=== PATIENT | female | born 1950 | race Caucasian/White ===

== ENCOUNTER 2017-04-03 12:30 | Emergency (ER) | payer OTHER ==
--- NOTE | 2017-04-03 16:43 | ED CLINICAL REPORT ---
Clinical Report - Physicians/Mid Levels [facility] [address] [place] [address] 04/03/2017 12:33 Patient: GIDEON MALLOY Time Seen: 12:42; initial patient contact. Arrived- By private vehicle. Historian- patient. HISTORY OF PRESENT ILLNESS Chief Complaint: Injury to the left thumb. The injury happened about 3 days ago. Occurred at home. The patient sustained a puncture wound from a splinter. Patient is experiencing moderate pain. Patient denies injury to the head or neck. REVIEW OF SYSTEMS The patient has had swelling. No tingling, numbness, foreign body, chills or fever. No nausea or vomiting. She sustained skin laceration. All systems otherwise negative, except as recorded above. PAST HISTORY The patient's dominant hand is the right. Last tetanus immunization was more than 5 years ago. Medications: CloNIDine HCl Oral. Levothyroxine Sodium Oral. Lisinopril Oral. Omeprazole Oral. PARoxetine HCl ER Oral. Zolpidem Tartrate Oral. Allergies: Flexeril. ("tongue, mouth and throat turn black"). SOCIAL HISTORY Current every day smoker. History of drug use: marijuana. ADDITIONAL NOTES The nursing notes have been reviewed. PHYSICAL EXAM Vital Signs: 04/03/2017 12:44 BP: 190/90. HR: 107. RR: 16. O2 saturation: 97%. Temp: 97.3 F. Have been reviewed. Hypertensive. Tachycardic. Respiratory rate normal. Temperature normal. Oxygen saturation normal. Appearance: Alert. Oriented X3. No acute distress. Head: Head atraumatic. Eyes: Eyes normal inspection. ENT: Pharynx normal. CVS: Normal heart rate and rhythm. Heart sounds normal. Respiratory: No respiratory distress. Breath sounds normal. Skin: Skin warm and dry. Skin intact. Extremities: Thenar eminence, left hand: moderate erythema, tenderness and swelling and single puncture wound. Limited movement of the thumb (diminished flexion, extension, abduction, adduction and opposition). Neurovascular intact distally. No foreign body or deformity. Hand and wrist exam otherwise negative. Extremities otherwise negative. Neuro, Vascular and Tendons: Vascular status intact. Sensation intact. Motor intact. Tendon function intact. Neuro: Oriented X 3. No motor deficit. LABS, X-RAYS, AND EKG Laboratory Tests: CBC w Diff: (DUGLAS: 04/03/2017 00:01) ( [facility] 04/03/2017 13:30) Final results Test Result Flag Units (Reference) WHITE BLOOD COUNT 16.4 H K/uL (4.5-11.5) RED BLOOD COUNT 4.64 M/uL (4.00-5.20) HEMOGLOBIN 12.8 gm/dL (12.0-16.0) HEMATOCRIT 38.7 % (36.0-46.0) MEAN CELL VOLUME 83 fL (80-100) MEAN CORPUSCULAR HGB 28 pg (26-34) MEAN CORPUSCULAR HGB CONC 33 g/dL (31-37) RED CELL DISTRIBUTION WIDTH 17.5 H % (11.6-14.8) PLATELET COUNT 429 H K/uL (150-400) NEUTROPHIL % 72.6 % (50-75) LYMPH % 18.8 L % (25-40) MONO % 7.6 % (3-14) EOSINOPHIL % 0.6 % (0-4) BASOPHIL % 0.4 % (0-2) SED RATE WESTERGREN 44 H mm/hr (0-30) CMP: (DUGLAS: 04/03/2017 00:01) ( [facility] 04/03/2017 14:07) Final results Test Result Flag Units (Reference) GLUCOSE 114 H mg/dL (70-110) BUN 9 mg/dL (7-18) CREATININE 0.7 mg/dL (0.6-1.3) Estimated GFR >60 mL/min Estimated GFR- >60 mL/min Note: Persistent reduction over 3 months in eGFR<60 mL/min/1.73 m2 defines CKD. Patients with eGFR values>=60 mL/min/1.73 m2 may also have CKD if evidence ofpersistent proteinuria. Additional information may be foundat www.kidney.org. SODIUM 138 mmol/L (136-145) POTASSIUM 3.3 L mmol/L (3.5-5.1) CHLORIDE 102 mmol/L (98-107) CARBON DIOXIDE 26 mmol/L (21-32) CALCIUM 8.9 mg/dL (8.5-10.1) TOTAL PROTEIN 8.1 g/dL (6.4-8.2) ALBUMIN 3.7 g/dL (3.3-5.0) BILIRUBIN, TOTAL 0.4 mg/dL (0.0-1.0) ALKALINE PHOSPHATASE 101 U/L (46-116) AST (SGOT) 14 L U/L (15-37) ALT (SGPT) 13 U/L (12-78) C-REACTIVE PROTEIN 3.7 H mg/dL (0.0-0.9) . PROGRESS AND PROCEDURES Course of Care: 13:58 04/03/17. Pt developed N/V ~ 1 minute after Ceftriaxone was started. Will switch to Vanc and Cipro. Discussed case with hospitalist, (call returned [phone] Dr. Hays Hospitalist at [facility] accepts the pt.). Consult obtained from orthopedics. Dr. Maggie wright at [facility], will consult on pt, asked to admit to the hospitalist. CLINICAL IMPRESSION Infectious tenosynovitis left hand (Thumb). Moderate leukocytosis. INSTRUCTIONS Your Current Medications: CONTINUE TAKING THE FOLLOWING MEDICATIONS: CloNIDine HCl Oral. Levothyroxine Sodium Oral. Lisinopril Oral. Omeprazole Oral. PARoxetine HCl ER Oral. Zolpidem Tartrate Oral. Follow-up: Blood pressure screening was not performed during this visit because the patient has an active diagnosis of hypertension. (Electronically signed by Davsi Fajardo Dr. 04/03/2017 22:26)
--- NOTE | 2017-04-03 16:43 | ED ORDER SUMMARY ---
..... Patient: GIDEON MALLOY OrderSheet [facility] VisitID: [id number] [place] [address] 67y, F Registration Date/Time: 04/03/2017 ORDER SHEET Weight: 49.8 kg (stated) Allergies: Flexeril GENERAL ORDERS: CBC w Diff Urgent (12:51 04/03/2017 Kaylin Franklin) (Ack 12:56 OSnell) (13:07 KWilliams R.N.) CMP Urgent (12:51 04/03/2017 Kaylin Franklin) (Ack 12:56 OSnell) (13:07 KWilliams R.N.) CRP Urgent (12:51 04/03/2017 Kaylin Franklin) (Ack 12:56 OSnell) (13:07 KWilliams R.N.) Sed Rate Urgent (12:51 04/03/2017 Kaylin Franklin) (Ack 12:56 OSnell) (13:07 KWilliams R.N.) NPO (12:51 04/03/2017 Kaylin Franklin) (Ack 12:56 OSsofia) (13:11 MWinterer R.N.) (Cancelled: Physician Order13:21 Kaylin Franklin) MEDICATION ORDERS: Tdap IM 0.5 mL (NOW, per protocol) (12:51 04/03/2017 Kaylin Franklin) (Ack 13:05 MWinterer R.N.) (13:11 MWinterer R.N.) Ciprofloxacin PO 500 mg (NOW) (13:59 04/03/2017 Kaylin Franklin) (Ack 14:03 MWinterer R.N.) (14:08 MWinterer R.N.) IV FLUIDS: IV Saline Lock (12:51 04/03/2017 Kaylin Franklin) (Ack 13:05 MWinterer R.N.) (13:07 KWilliams R.N.) Ceftriaxone IV 1 gm/50mL (NOW) (13:21 04/03/2017 Kaylin Franklin) (Ack 13:24 MWinterer R.N.) (13:34 MWinterer R.N.) Zofran IV 4 mg (NOW) (13:41 04/03/2017 MWinterer R.N. verbal order read back to Kaylin Franklin) (13:42 MWinterer R.N.) Morphine IV 4 mg (HIGH ALERT MEDICATION, NOW) (13:41 04/03/2017 MWinterer R.N. verbal order read back to Kaylin Franklin) (13:42 MWinterer R.N.) Vancomycin IV 1 gm/200mL (NOW) (13:59 04/03/2017 Kaylin Franklin) (Ack 14:03 MWinterer R.N.) (14:25 MWinterer R.N.) Morphine IV 4 mg (HIGH ALERT MEDICATION, NOW) (16:41 04/03/2017 Kaylin Franklin) (Ack 16:56 MWinterer R.N.) (17:00 MWinterer R.N.) ORDER SHEET NOTES: [Electronically signed by Alannah Oconnor R.N. (17:17 04/03/2017)] [Electronically signed by Davis Fajardo Dr. (22:26 04/03/2017)] [Electronically locked/signed by Alannah Oconnor R.N. (17:17 04/03/2017)]
--- NOTE | 2017-04-03 16:43 | ED NURSING NOTES ---
Clinical Report - Nurses [facility] [address] [place] [address] 04/03/2017 12:33 Patient: GIDEON MALLOY TRIAGE Triage time 12:42. Acuity: LEVEL 3. Chief Complaint: LEFT UPPER EXTREMITY PAIN and SWELLING. Location of symptoms- left hand. Alert. No acute distress. DAE COMA SCORE: [place] Coma Scale: 15- eyes open spontaneously (4); best verbal response- oriented x 4 (5); best motor response- obeys commands (6). --12:52 Igor Petit R.N. 12:44 04/03/17. BP: 190/90. HR: 107. RR: 16. O2 saturation: 97% on room air. Temp: 97.3 F (oral). Pain level now 06/28. --12:52 Igor Petit R.N. Weight: 49.8 kg stated. Height/Length: 57 inches Per Patient. BMI: 23.8. --12:45 Igor Petit R.N. Medications Zolpidem Tartrate Oral. --12:48 Igor Petit R.N. PARoxetine HCl ER Oral. --12:49 Igor Petit R.N. Omeprazole Oral. --12:49 Igor Petit R.N. Lisinopril Oral. --12:49 Igor Petit R.N. Levothyroxine Sodium Oral. --12:49 Igor Petit R.N. CloNIDine HCl Oral. --12:49 Igor Petit R.N. Allergies Flexeril. ("tongue, mouth and throat turn black") --12:49 Igor Petit R.N. History Arrived by private vehicle. Primary physician (urmila). ( left hand swelling and pain. States she was stuck by a sliver of wood and noted swelling beginnging tuesday). Injury occurred. Occurred at home. Treatment CONSTRUCTION ADMINISTRATIVE ASSISTANT: (hot water). SOCIAL HX: Heavy tobacco smoker (cigarette)- 1-2 packs per day. History of drug use: marijuana. No alcohol use. ABUSE ASSESSMENT: Abuse assessment: The patient was asked "Do you feel safe in your home?". No report of abuse. SELF HARM ASSESSMENT: A self harm assessment was performed. The patient answered "no" to the question "Do you have thoughts of harming or killing yourself?" and "Have you recently had thoughts about harming or killing others?". FALL RISK ASSESSMENT: Fall risk assessment completed. No fall risk identified. NUTRITIONAL RISK ASSESSMENT: The nutritional risk assessment revealed no deficiencies. FUNCTIONAL ASSESSMENT: Functional assessment: no impairments noted. LEARNING NEEDS ASSESSMENT: The learning needs assessment revealed no barriers. SKIN INTEGRITY ASSESSMENT: Skin integrity risk assessment completed. No skin integrity risk identified. --12:52 Igor Petit R.N. PROBLEMS: Gastroesophageal Reflux Disease. Insomnia. Hypothyroidism. Hypertension. --12:51 Igor Petit R.N. ADDITIONAL SURGERIES: Cholecystectomy. Hysterectomy. Right hand surgery. --12:51 Igor Petit R.N. Assessment GENERAL / NEURO / PSYCH: Alert. Oriented X 4. Dae Coma Scale: 15- eyes open spontaneously (4); best verbal response- oriented x 4 (5); best motor response- obeys commands (6). Patient appears calm and cooperative. RESPIRATORY: Respirations not labored. GI / : Abdomen soft. SKIN: Skin is warm and dry. ( tenderness and swelling to left hand, just proximal to thumb, states she is unable to move thumb). --12:52 Igor Petit R.N. Interventions ID band on patient. To treatment room. --12:52 Igor Petit R.N. PHYSICAL ASSESSMENT Ambulatory to room. GENERAL / NEURO / PSYCH: Oriented X 4. Alert. Appears in no acute distress. EXTREMITIES: Neuro-vascular status intact to the extremity. Left hand: tenderness and swelling. SKIN: Skin is warm and dry. --12:53 Igor Petit R.N. NURSING PROGRESS NOTES The plan of care for this patient has been created. Extremity elevated. Patient gowned. Call light placed in reach. Bed placed in lowest position. Brakes of bed on. Patient ready for evaluation- chart flagged. --12:53 Igor Petit R.N. 13:02 04/03/2017 Site #1 started via IV in the right antecubital space with an 20g angiocath, with aseptic technique and good blood return; one attempt. Blood drawn: rainbow set. Labeled in the presence of the patient and sent to the lab. Saline lock flushed with 10 mL saline. --13:07 Igor Petit R.N. 13:11 04/03/2017 TDAP IM 0.5 mL given. (Lot#: [id number], expiration date: 02/22/2019, Nursing Officer: sanofi pasteur). Given in the left deltoid. Allergies verified and confirmed 5 rights. Vaccine information statement provided to the patient. --13:11 Alannah Oconnor R.N. 13:34 04/03/2017 Started 1 gm of Ceftriaxone IVPB in bag #1 50 mL; at 150 mL/hr over 20 minute(s) via site #1 via IV pump. Allergies verified and confirmed 5 rights. IV patency established. IV site checked: no pain, redness, or swelling. IV flushed thoroughly pre- and post-medication administration. --13:34 Alannah Oconnor R.N. 13:35 04/03/2017 Ceftriaxone IVPB Discontinued: bag #1 STOPPED. Total amount infused: 4.8 mL. IV patency established. IV site checked: no pain, redness, or swelling. IV flushed thoroughly. (pt started vomiting upon start of ceftriaxone). --13:41 Alannah Oconnor R.N. 13:42 04/03/2017 Zofran (Ondansetron HCl) IVP 4 mg given over 1 minute(s) via site #1. Allergies verified and confirmed 5 rights. IV patency established. IV site checked: no pain, redness, or swelling. IV flushed thoroughly pre- and post-medication administration. IVP given by RN. --13:42 Alannah Oconnor R.N. 13:42 04/03/2017 Morphine IVP 4 mg given over 2 minute(s) via site #1. Allergies verified, confirmed 5 rights and sedative warning given to the patient. IV patency established. IV site checked: no pain, redness, or swelling. IV flushed thoroughly pre- and post-medication administration. IVP given by RN. --13:42 Alannah Oconnor R.N. 13:43 04/03/17. Pulse oximeter applied; monitor alarms on. --13:43 Alannah Oconnor R.N. 14:08 04/03/2017 Ciprofloxacin (Ciprofloxacin) PO 500 mg given. Allergies verified and confirmed 5 rights. --14:08 Alannah Oconnor R.N. 14:25 04/03/2017 Started 1 gm of Vancomycin IVPB in bag #1 200 mL; at 200 mL/hr over 1 hour(s) via site #1 via IV pump. Allergies verified and confirmed 5 rights. IV patency established. IV site checked: no pain, redness, or swelling. IV flushed thoroughly pre- and post-medication administration. --14:25 Alannah Oconnor R.N. 14:48 04/03/17. BP: 205/94. HR: 90. RR: 16. O2 saturation: 97% on room air. Pain level now 7/10. --14:49 Igor Petit R.N. The patient is calm and resting quietly. Overall patient status- she states feels better. --14:49 Igor Petit R.N. 16:02 04/03/17. BP: 186/78. HR: 89. RR: 18. O2 saturation: 95% on room air. --16:02 Alannah Oconnor R.N. 15:36 04/03/2017 Vancomycin IVPB Discontinued: bag #1 infused. Total amount infused: 200 mL. IV patency established. IV site checked: no pain, redness, or swelling. IV flushed thoroughly. --16:36 Alannah Oconnor R.N. 16:36 04/03/2017 Site #[address] upon transfer; patent, no pain and no signs of infection or infiltration. Flushed with 10 mL saline; flushes easily. --16:36 Alannah Oconnor R.N. 16:50 04/03/2017 Morphine IVP 4 mg given over 1 minute(s) via site #1. Allergies verified, confirmed 5 rights and sedative warning given to the patient. IV patency established. IV site checked: no pain, redness, or swelling. IV flushed thoroughly pre- and post-medication administration. IVP given by RN. --17:00 Alannah Oconnor R.N. DISPOSITION / DISCHARGE 16:38 04/03/17. BP: 195/73. HR: 87. RR: 16. O2 saturation: 98% on room air. Temp: 98.1 F (oral). --16:39 Alannah Oconnor R.N. Departure time: 17:00 Apr 03 2017. Condition at departure: improved and stable. Learning barriers present. Transferred to [facility]. Transported via ambulance by EMS and transport team. Report was given to a nurse in person. Report included patient's care, treatment, medications, reviewed medication reconcilliation, and condition (including any recent changes or anticipated changes). All questions were answered. Report was acknowledged and care was transferred. (MIKE Villeda). Patient's personal items include: purse; items were placed in belongings bag and given to the spouse. --17:16 Alannah Oconnor R.N. Locked/Released at 04/03/2017 17:17 by Alannah Oconnor R.N.
--- NOTE | 2017-04-03 16:43 | ED ORDER SUMMARY ---
..... Patient: GIDEON MALLOY OrderSheet [facility] VisitID: [id number] [place] [address] 67y, F Registration Date/Time: 04/03/2017 ORDER SHEET Weight: 49.8 kg (stated) Allergies: Flexeril GENERAL ORDERS: CBC w Diff Urgent (12:51 04/03/2017 Kaylin Franklin) (Ack 12:56 OSnell) (13:07 KWilliams R.N.) CMP Urgent (12:51 04/03/2017 Kaylin Franklin) (Ack 12:56 OSnell) (13:07 KWilliams R.N.) CRP Urgent (12:51 04/03/2017 Kaylin Franklin) (Ack 12:56 OSnell) (13:07 KWilliams R.N.) Sed Rate Urgent (12:51 04/03/2017 Kaylin Franklin) (Ack 12:56 OSnell) (13:07 KWilliams R.N.) NPO (12:51 04/03/2017 Kaylin Franklin) (Ack 12:56 OSsofia) (13:11 MWinterer R.N.) (Cancelled: Physician Order13:21 Kaylin Franklin) MEDICATION ORDERS: Tdap IM 0.5 mL (NOW, per protocol) (12:51 04/03/2017 Kaylin Franklin) (Ack 13:05 MWinterer R.N.) (13:11 MWinterer R.N.) Ciprofloxacin PO 500 mg (NOW) (13:59 04/03/2017 Kaylin Franklin) (Ack 14:03 MWinterer R.N.) (14:08 MWinterer R.N.) IV FLUIDS: IV Saline Lock (12:51 04/03/2017 Kaylin Franklin) (Ack 13:05 MWinterer R.N.) (13:07 KWilliams R.N.) Ceftriaxone IV 1 gm/50mL (NOW) (13:21 04/03/2017 Kaylin Franklin) (Ack 13:24 MWinterer R.N.) (13:34 MWinterer R.N.) Zofran IV 4 mg (NOW) (13:41 04/03/2017 MWinterer R.N. verbal order read back to Kaylin Franklin) (13:42 MWinterer R.N.) Morphine IV 4 mg (HIGH ALERT MEDICATION, NOW) (13:41 04/03/2017 MWinterer R.N. verbal order read back to Kaylin Franklin) (13:42 MWinterer R.N.) Vancomycin IV 1 gm/200mL (NOW) (13:59 04/03/2017 Kaylin Franklin) (Ack 14:03 MWinterer R.N.) (14:25 MWinterer R.N.) Morphine IV 4 mg (HIGH ALERT MEDICATION, NOW) (16:41 04/03/2017 Kaylin Franklin) (Ack 16:56 MWinterer R.N.) (17:00 MWinterer R.N.) ORDER SHEET NOTES: [Electronically signed by Alannah Oconnor R.N. (17:17 04/03/2017)] [Electronically signed by Davis Fajardo Dr. (22:26 04/03/2017)] [Electronically locked/signed by Alannah Oconnor R.N. (17:17 04/03/2017)]
--- NOTE | 2017-04-03 16:43 | ED CLINICAL REPORT ---
Clinical Report - Physicians/Mid Levels [facility] [address] [place] [address] 04/03/2017 12:33 Patient: GIDEON MALLOY Time Seen: 12:42; initial patient contact. Arrived- By private vehicle. Historian- patient. HISTORY OF PRESENT ILLNESS Chief Complaint: Injury to the left thumb. The injury happened about 3 days ago. Occurred at home. The patient sustained a puncture wound from a splinter. Patient is experiencing moderate pain. Patient denies injury to the head or neck. REVIEW OF SYSTEMS The patient has had swelling. No tingling, numbness, foreign body, chills or fever. No nausea or vomiting. She sustained skin laceration. All systems otherwise negative, except as recorded above. PAST HISTORY The patient's dominant hand is the right. Last tetanus immunization was more than 5 years ago. Medications: CloNIDine HCl Oral. Levothyroxine Sodium Oral. Lisinopril Oral. Omeprazole Oral. PARoxetine HCl ER Oral. Zolpidem Tartrate Oral. Allergies: Flexeril. ("tongue, mouth and throat turn black"). SOCIAL HISTORY Current every day smoker. History of drug use: marijuana. ADDITIONAL NOTES The nursing notes have been reviewed. PHYSICAL EXAM Vital Signs: 04/03/2017 12:44 BP: 190/90. HR: 107. RR: 16. O2 saturation: 97%. Temp: 97.3 F. Have been reviewed. Hypertensive. Tachycardic. Respiratory rate normal. Temperature normal. Oxygen saturation normal. Appearance: Alert. Oriented X3. No acute distress. Head: Head atraumatic. Eyes: Eyes normal inspection. ENT: Pharynx normal. CVS: Normal heart rate and rhythm. Heart sounds normal. Respiratory: No respiratory distress. Breath sounds normal. Skin: Skin warm and dry. Skin intact. Extremities: Thenar eminence, left hand: moderate erythema, tenderness and swelling and single puncture wound. Limited movement of the thumb (diminished flexion, extension, abduction, adduction and opposition). Neurovascular intact distally. No foreign body or deformity. Hand and wrist exam otherwise negative. Extremities otherwise negative. Neuro, Vascular and Tendons: Vascular status intact. Sensation intact. Motor intact. Tendon function intact. Neuro: Oriented X 3. No motor deficit. LABS, X-RAYS, AND EKG Laboratory Tests: CBC w Diff: (DUGLAS: 04/03/2017 00:01) ( [facility] 04/03/2017 13:30) Final results Test Result Flag Units (Reference) WHITE BLOOD COUNT 16.4 H K/uL (4.5-11.5) RED BLOOD COUNT 4.64 M/uL (4.00-5.20) HEMOGLOBIN 12.8 gm/dL (12.0-16.0) HEMATOCRIT 38.7 % (36.0-46.0) MEAN CELL VOLUME 83 fL (80-100) MEAN CORPUSCULAR HGB 28 pg (26-34) MEAN CORPUSCULAR HGB CONC 33 g/dL (31-37) RED CELL DISTRIBUTION WIDTH 17.5 H % (11.6-14.8) PLATELET COUNT 429 H K/uL (150-400) NEUTROPHIL % 72.6 % (50-75) LYMPH % 18.8 L % (25-40) MONO % 7.6 % (3-14) EOSINOPHIL % 0.6 % (0-4) BASOPHIL % 0.4 % (0-2) SED RATE WESTERGREN 44 H mm/hr (0-30) CMP: (DUGLAS: 04/03/2017 00:01) ( [facility] 04/03/2017 14:07) Final results Test Result Flag Units (Reference) GLUCOSE 114 H mg/dL (70-110) BUN 9 mg/dL (7-18) CREATININE 0.7 mg/dL (0.6-1.3) Estimated GFR >60 mL/min Estimated GFR- >60 mL/min Note: Persistent reduction over 3 months in eGFR<60 mL/min/1.73 m2 defines CKD. Patients with eGFR values>=60 mL/min/1.73 m2 may also have CKD if evidence ofpersistent proteinuria. Additional information may be foundat www.kidney.org. SODIUM 138 mmol/L (136-145) POTASSIUM 3.3 L mmol/L (3.5-5.1) CHLORIDE 102 mmol/L (98-107) CARBON DIOXIDE 26 mmol/L (21-32) CALCIUM 8.9 mg/dL (8.5-10.1) TOTAL PROTEIN 8.1 g/dL (6.4-8.2) ALBUMIN 3.7 g/dL (3.3-5.0) BILIRUBIN, TOTAL 0.4 mg/dL (0.0-1.0) ALKALINE PHOSPHATASE 101 U/L (46-116) AST (SGOT) 14 L U/L (15-37) ALT (SGPT) 13 U/L (12-78) C-REACTIVE PROTEIN 3.7 H mg/dL (0.0-0.9) . PROGRESS AND PROCEDURES Course of Care: 13:58 04/03/17. Pt developed N/V ~ 1 minute after Ceftriaxone was started. Will switch to Vanc and Cipro. Discussed case with hospitalist, (call returned [phone] Dr[address] Hays Hospitalist at [facility] accepts the pt.). Consult obtained from orthopedics. Dr. Maggie wright at [facility], will consult on pt, asked to admit to the hospitalist. CLINICAL IMPRESSION Infectious tenosynovitis left hand (Thumb). Moderate leukocytosis. INSTRUCTIONS Your Current Medications: CONTINUE TAKING THE FOLLOWING MEDICATIONS: CloNIDine HCl Oral. Levothyroxine Sodium Oral. Lisinopril Oral. Omeprazole Oral. PARoxetine HCl ER Oral. Zolpidem Tartrate Oral. Follow-up: Blood pressure screening was not performed during this visit because the patient has an active diagnosis of hypertension. (Electronically signed by Davis Fajardo Dr. 04/03/2017 22:26)
--- NOTE | 2017-04-03 22:26 | ED MAR SUMMARY ---
..... Medication Administration Record [address] [place] [address] Patient: GIDEON MALLOY Visit ID: [id number] 67y, F Weight: 49.8 kg Height/Length: 57 in BMI: 23.8 ALLERGIES: Flexeril Given 13:11 04/03/2017 Alannah Oconnor R.N. Medication Administered: TDAP [IM], Dose: 0.5 mL IM. Medication Ordered: Tdap IM 0.5 mL (NOW, per protocol). Start 13:34 04/03/2017 Alannah Oconnor R.N., Stop 13:35 04/03/2017 Alannah Oconnor R.N. Medication Administered: CEFTRIAXONE [IVPB], Dose: 1 gm IVPB over 20 minute(s), Rate: 150 mL/hr, Dispensed: 50 mL bag, Site: #1 right AC. Medication Ordered: Ceftriaxone IV 1 gm/50mL (NOW). Given 13:42 04/03/2017 Alannah Oconnor R.N. Medication Administered: ZOFRAN [IVP] (ONDANSETRON HCL), Dose: 4 mg IVP over 1 minute(s), Site: #1 right AC. Medication Ordered: Zofran IV 4 mg (NOW). Given 13:42 04/03/2017 Alannah Oconnor R.N. Medication Administered: MORPHINE [IVP], Dose: 4 mg IVP over 2 minute(s), Site: #1 right AC. Medication Ordered: Morphine IV 4 mg (HIGH ALERT MEDICATION, NOW). Given 14:08 04/03/2017 Alannah Oconnor R.N. Medication Administered: CIPROFLOXACIN [PO] (CIPROFLOXACIN), Dose: 500 mg PO. Medication Ordered: Ciprofloxacin PO 500 mg (NOW). Start 14:25 04/03/2017 Alannah Oconnor R.N., Stop 15:36 04/03/2017 Alannah Oconnor R.N. Medication Administered: VANCOMYCIN [IVPB], Dose: 1 gm IVPB over 1 hour(s), Rate: 200 mL/hr, Dispensed: 200 mL bag, Site: #1 right AC. Medication Ordered: Vancomycin IV 1 gm/200mL (NOW). Given 16:50 04/03/2017 Alannah Oconnor R.N. Medication Administered: MORPHINE [IVP], Dose: 4 mg IVP over 1 minute(s), Site: #1. Medication Ordered: Morphine IV 4 mg (HIGH ALERT MEDICATION, NOW).
--- NOTE | 2017-04-03 22:26 | ED MAR SUMMARY ---
..... Medication Administration Record [facility] [address] [place] [address] Patient: GIDEON MALLOY Visit ID: [id number] 67y, F Weight: 49.8 kg Height/Length: 57 in BMI: 23.8 ALLERGIES: Flexeril Given 13:11 04/03/2017 Alannah Oconnor R.N. Medication Administered: TDAP [IM], Dose: 0.5 mL IM. Medication Ordered: Tdap IM 0.5 mL (NOW, per protocol). Start 13:34 04/03/2017 Alannah Oconnor R.N., Stop 13:35 04/03/2017 Alannah Oconnor R.N. Medication Administered: CEFTRIAXONE [IVPB], Dose: 1 gm IVPB over 20 minute(s), Rate: 150 mL/hr, Dispensed: 50 mL bag, Site: #1 right AC. Medication Ordered: Ceftriaxone IV 1 gm/50mL (NOW). Given 13:42 04/03/2017 Alannah Oconnor R.N. Medication Administered: ZOFRAN [IVP] (ONDANSETRON HCL), Dose: 4 mg IVP over 1 minute(s), Site: #1 right AC. Medication Ordered: Zofran IV 4 mg (NOW). Given 13:42 04/03/2017 Alannah Oconnor R.N. Medication Administered: MORPHINE [IVP], Dose: 4 mg IVP over 2 minute(s), Site: #1 right AC. Medication Ordered: Morphine IV 4 mg (HIGH ALERT MEDICATION, NOW). Given 14:08 04/03/2017 Alannah Oconnor R.N. Medication Administered: CIPROFLOXACIN [PO] (CIPROFLOXACIN), Dose: 500 mg PO. Medication Ordered: Ciprofloxacin PO 500 mg (NOW). Start 14:25 04/03/2017 Alannah Oconnor R.N., Stop 15:36 04/03/2017 Alannah Oconnor R.N. Medication Administered: VANCOMYCIN [IVPB], Dose: 1 gm IVPB over 1 hour(s), Rate: 200 mL/hr, Dispensed: 200 mL bag, Site: #1 right AC. Medication Ordered: Vancomycin IV 1 gm/200mL (NOW). Given 16:50 04/03/2017 Alannah Oconnor R.N. Medication Administered: MORPHINE [IVP], Dose: 4 mg IVP over 1 minute(s), Site: #1. Medication Ordered: Morphine IV 4 mg (HIGH ALERT MEDICATION, NOW).
--- NOTE | 2017-04-03 22:26 | ED MED RECONCILIATION SUMMARY ---
Patient: GIDEON MALLOY Medication Reconciliation Report [facility] VisitID: [id number] [address] [place] [address] 67y, F Registration Date/Time: 04/03/2017 Weight: 49.8 kg Height/Length: 57 in. BMI: 23.8 ALLERGIES: Flexeril The patient's Home Medications are listed below: CONTINUE TAKING THE FOLLOWING MEDICATIONS: CloNIDine HCl Oral Levothyroxine Sodium Oral Lisinopril Oral Omeprazole Oral PARoxetine HCl ER Oral Zolpidem Tartrate Oral The source(s) of the original Home Medication information: Not obtained. The following Medications were given to the patient in the Emergency Department: TDAP [IM] IM 0.5 mL, administered: 04/03/2017 1:11:00 PM Ceftriaxone [IVPB] IVPB bolus 0, then 1 gm 150 mL/hr, administered: 04/03/2017 1:34:00 PM Zofran [IVP] IVP 4 mg, administered: 04/03/2017 1:42:00 PM Morphine [IVP] IVP 4 mg, administered: 04/03/2017 1:42:00 PM Ciprofloxacin [PO] PO 500 mg, administered: 04/03/2017 2:08:00 PM Vancomycin [IVPB] IVPB bolus 0, then 1 gm 200 mL/hr, administered: 04/03/2017 2:25:00 PM Morphine [IVP] IVP 4 mg, administered: 04/03/2017 4:50:00 PM The following Medications were prescribed to the patient: None.
--- NOTE | 2017-04-03 22:26 | ED MED RECONCILIATION SUMMARY ---
Patient: GIDEON MALLOY Medication Reconciliation Report [facility] VisitID: [id number] [address] [place] [address] 67y, F Registration Date/Time: 04/03/2017 Weight: 49.8 kg Height/Length: 57 in. BMI: 23.8 ALLERGIES: Flexeril The patient's Home Medications are listed below: CONTINUE TAKING THE FOLLOWING MEDICATIONS: CloNIDine HCl Oral Levothyroxine Sodium Oral Lisinopril Oral Omeprazole Oral PARoxetine HCl ER Oral Zolpidem Tartrate Oral The source(s) of the original Home Medication information: Not obtained. The following Medications were given to the patient in the Emergency Department: TDAP [IM] IM 0.5 mL, administered: 04/03/2017 1:11:00 PM Ceftriaxone [IVPB] IVPB bolus 0, then 1 gm 150 mL/hr, administered: 04/03/2017 1:34:00 PM Zofran [IVP] IVP 4 mg, administered: 04/03/2017 1:42:00 PM Morphine [IVP] IVP 4 mg, administered: 04/03/2017 1:42:00 PM Ciprofloxacin [PO] PO 500 mg, administered: 04/03/2017 2:08:00 PM Vancomycin [IVPB] IVPB bolus 0, then 1 gm 200 mL/hr, administered: 04/03/2017 2:25:00 PM Morphine [IVP] IVP 4 mg, administered: 04/03/2017 4:50:00 PM The following Medications were prescribed to the patient: None.
--- NOTE | 2017-04-03 22:26 | ED DISCHARGE INSTRUCTIONS ---
Patient: GIDEON MALLOY General Instructions [facility] VisitID: [id number] [address] [place] [address] 67y, F Registration Date/Time: 04/03/2017 Infectious tenosynovitis left hand (Thumb). Moderate leukocytosis. INSTRUCTIONS Your Current Medications: CONTINUE TAKING THE FOLLOWING MEDICATIONS: CloNIDine HCl Oral. Levothyroxine Sodium Oral. Lisinopril Oral. Omeprazole Oral. PARoxetine HCl ER Oral. Zolpidem Tartrate Oral. Follow-up: Blood pressure screening was not performed during this visit because the patient has an active diagnosis of hypertension. (Electronically signed by Davis Fajardo Dr. 04/03/2017 22:26)
--- NOTE | 2017-04-03 22:26 | ED DISCHARGE INSTRUCTIONS ---
Patient: GIDEON MALLOY General Instructions [facility] VisitID: [id number] [address] [place] [address] 67y, F Registration Date/Time: 04/03/2017 Infectious tenosynovitis left hand (Thumb). Moderate leukocytosis. INSTRUCTIONS Your Current Medications: CONTINUE TAKING THE FOLLOWING MEDICATIONS: CloNIDine HCl Oral. Levothyroxine Sodium Oral. Lisinopril Oral. Omeprazole Oral. PARoxetine HCl ER Oral. Zolpidem Tartrate Oral. Follow-up: Blood pressure screening was not performed during this visit because the patient has an active diagnosis of hypertension. (Electronically signed by Davis Fajardo Dr. 04/03/2017 22:26)
== END 2017-04-03 17:00 | disposition short-term general hospital (02) ==
LOC: ED SRH 12:30
DX: M65.142 Other infective (teno)synovitis, left hand (principal); D72.829 Elevated white blood cell count, unspecified; W45.8XXA Other foreign body or object entering through skin, initial encounter; Y93.9 Activity, unspecified; Y99.9 Unspecified external cause status; Y92.009 Unspecified place in unspecified non-institutional (private) residence as the place of occurrence of the external cause; F17.200 Nicotine dependence, unspecified, uncomplicated; Z79.899 Other long term (current) drug therapy; Z23 Encounter for immunization
CPT/HCPCS: 90100; 91585; 95059; 95150